=== PATIENT | male | born 1925 | race Caucasian/White ===

== ENCOUNTER 2017-06-30 15:45 | Emergency (ER) | payer MEDICARE, OTHER ==
[~2017-06-30 15:45] MED LIST: ALENDRONATE SODI5 MG PO; BAYER CHEWABLE81 MG PO; CIALIS2.5 MG PO; FISH OIL 1,0001 CA1 PO; HYDROCHLOROTHIA25 MG PO; LIPITOR10 MG PO; LIPITOR20 MG PO; MOBIC7.5 MG PO; NEURONTIN800 MG PO; PRESERVISION AR1 CAP PO; ULTRAM50 MG PO
[2017-06-30 16:16] LABS: BASOPHILS 0.2 % (0-2); HEMATOCRIT 38.3 % (42.0-54.0); HEMOGLOBIN 13.2 g/dL (13.5-17.5); IMMATURE GRANULOCYTES 0.4 % (0-5); LYMPHOCYTES 15.3 % (15-50); MCHC 34.5 g/dL (31.0-37.0); MCV 95.8 fL (80.0-100.0); MEAN PLATELET VOLUME 10.6 fL (7.4-10.4); MONOCYTES 13.7 % (2-11); NEUTROPHILS 68.4 % (40-80); PLATELET COUNT 126 10x3/uL (130-400); RDW 12.8 % (11.5-14.5); WBC 5.5 10x3/uL (4.8-10.8)
[2017-06-30 16:35] LABS: ALBUMIN 3.3 g/dL (3.4-5.0); ALKALINE PHOSPHATASE 55 U/L (46-116); ALT (SGPT) 20 U/L (10-68); BILIRUBIN - TOTAL 0.39 mg/dL (0.2-1.3); CALC OSMOLALITY 282 mosm/kg (275-300); CALCIUM 9.2 mg/dL (8.5-10.1); CARBON DIOXIDE 32.6 mmol/L (21.0-32.0); CHLORIDE - SERUM 101 mmol/L (98-107); CREATININE - SERUM 1.2 mg/dL (0.6-1.3); GLUCOSE 141 mg/dL (74-106); POTASSIUM - SERUM 3.5 mmol/L (3.5-5.1); PROTEIN - SERUM 6.8 g/dL (6.4-8.2); SODIUM 140 mmol/L (136-145); UREA NITROGEN 19 mg/dL (7-18); eGFR NON AFRICAN AMERICAN 61 mL/min (90-120)
[2017-06-30 16:42] LABS: CKMB 2.2 U/L (0.0-3.6); CREATINE KINASE 148 UL (21-232); TROPONIN-I < 0.017 ng/mL (0.000-0.060)
== END 2017-06-30 17:07 | disposition home or self-care (01) ==
LOC: D.ER 15:45
PROVIDERS: Emergency Medicine
DX: R55 Syncope and collapse (principal); I49.3 Ventricular premature depolarization; I10 Essential (primary) hypertension; E03.9 Hypothyroidism, unspecified